=== PATIENT | female | born 1995 | race Caucasian/White ===

== ENCOUNTER 2023-10-24 14:13 | Emergency (ER) | payer OTHER ==
[~2023-10-24] VITALS: Ht 170.2 cm; Wt 72.6 kg
[2023-10-24 14:31] VITALS: BP 119/77; PULSE 140; RESP 20; TEMP 100.1; O2SAT 99
[2023-10-24] MEDS: IBUPROFEN 600 MG TAB PO ONE (15:36)
[2023-10-24] MEDS: ACETAMINOPHEN EXTRA STRENGTH 500 MG TAB PO ONE (15:37)
[2023-10-24] MEDS ORDERED: IBUP-2213 PO (15:42)
[2023-10-24] MEDS ORDERED: PENI500T20 PO (15:42)
[2023-10-24] MEDS ORDERED: BENZ-256 MM (15:42)
[2023-10-24 15:50] LABS: FLU A ANTIGEN negative (NEGATIVE); FLU B ANTIGEN NEGATIVE (NEGATIVE)
== END 2023-10-24 15:59 | disposition home or self-care (01) ==
LOC: MED 14:13
DX: J02.0 Streptococcal pharyngitis (principal); Z20.822 Contact with and (suspected) exposure to COVID-19; Z79.899 Other long term (current) drug therapy
CPT/HCPCS: 87081; 99283